=== PATIENT | female | born 1955 | race Caucasian/White ===

== ENCOUNTER → 2018-03-21 15:14 | Outpatient (CLI) | payer MEDICARE, MEDICAID, SELFPAY ==
[2018-03-21 16:58] LABS: Blood Urea Nitrogen 26 mg/dL (7-18); Calcium 10.2 mg/dL (8.5-10.1); Carbon Dioxide 27 mmol/L (21.0-32.0); Chloride 99 mmol/L (98-107); Estimated Glomerular Filt Rate 35 ml/min (>60); GFR (African American) 42 ML/MIN (>60); Glucose 137 mg/dL (74-106); Sodium 140 mmol/L (136-145)
[2018-03-23 16:59] LABS: Vitamin D 25 Hydroxy 34.3 ng/mL (30.0-100.0)
[2018-03-25 06:41] LABS: Parathyroid Hormone Intact 86 pg/mL (15-65)
== END ==
PROVIDERS: Visit Provider Family Medicine
DX: I10 Essential (primary) hypertension (principal); N18.3 Chronic kidney disease, stage 3 (moderate)
CPT/HCPCS: 36415; 80048; 82652; 83970

== ENCOUNTER → 2019-11-14 15:41 | Outpatient (CLI) | payer MEDICARE, MEDICAID, SELFPAY ==
--- NOTE | 2019-11-14 15:58 | XR_ITS ---
PROCEDURE: XR MULTIPLE SPINE 6+V CLINICAL INDICATION: BACK PAIN COMPARISON: No exams were available for comparison FINDINGS: AP and lateral films thoracic spine show normal curvature and alignment. There is moderate multilevel degenerate changes with anterior and lateral osteophytic spurring at multiple levels. There is no evidence of recent or old compression fracture. There is no paraspinal mass. Lumbar spine: AP lateral and oblique films show mild straightening of the normal curvature in the thoracolumbar region suggesting muscle spasm. All lumbar vertebrae appear intact. There is no significant disc space narrowing however there is prominent anterior osteophytic spurring at the L2-3 level and prominent anterior osteophytic spurring on the right side at the L1-2 level. There is no obvious pars defect although the oblique films are not properly position. There are moderate hypertrophic facet changes at the L4-5 and L5-S1 levels. There is diffuse arthrosclerotic calcification of the abdominal aorta but there is no aneurysm. There is a total hip prosthesis left-side. IMPRESSION: Multilevel degenerate changes thoracic spine and prominent degenerate changes upper lumbar spine as noted Dictated by: Dr. Ant Min MD 11/14/2019 16:[address] Ant Min MD in [place] 11/14/2019 16:49
== END ==
PROVIDERS: PCP Family Medicine; Visit Provider Family Medicine
DX: M54.6 Pain in thoracic spine (principal); M54.5 Low back pain
CPT/HCPCS: 72084